=== PATIENT | male | born 1990 | race Caucasian/White ===

== ENCOUNTER 2023-10-12 21:31 | Emergency (ER) | payer OTHER, SELFPAY ==
[2023-10-12 21:35] VITALS: BP 169/109
[2023-10-12 23:09] LABS: Glucose - Point of Care 326 mg/dl (70-99)
--- NOTE | 2023-10-13 00:04 | ED.SKININJ ---
HPI-Injury
General
Chief Complaint: Skin Problem
Source: patient
Exam Limitations: none
Time Seen by Provider: 10/12/23 23:19
Nursing documentation reviewed up to this point in time: agreed with
Travel History
Have you had any contact with someone who has COVID-19?: No
Do you have any symptoms of coronavirus? Fever > 100 degrees, chills, cough, shortness of breath, sore throat, loss of taste or smell, muscle aches, or headache?: No
History of Present Illness-Injury
Is this injury a work related problem?: No
Is pt an associate of [facility]?: No
Initial Injury comments:
Patient to ED with complaint of increasing pain redness and swelling to left distal 3rd finger. Symptoms started 2 days ago. Denes fever/chills. Brought self to ED for eval
Past History
Past History
ED Past Medical History: Hypercholesterolemia, IDDM, NIDDM and Other (Dental caries; TMJ dysfunction)
ED Past Surgical History: Orthopedic (Rotator cuff repair 2018, left great toe amputation)
Social History
Tobacco: Non-smoker
Alcohol: Occasional
Drug: None
Personal:
Living: with family
Employment: Employed
Family History
Family History: CAD (grandfather)
Review of Systems
Review of Systems
Allergies reviewed?: Yes
All Other Systems: ROS reviewed and negative except as documented in HPI and ROS
Constitutional: Reports no symptoms
Musculoskeletal: Reports no symptoms
Skin: Reports other (pain redness swelling to left distal 3rd finger)
Neurological: Reports no symptoms
Psychiatric: Reports no symptoms
Skin Exam
Abscess
Left Distal Third Finger:
Description of abscess: fluctuant
Surrounding skin:: inflammed at abscess site
Phy Exam
General Physical Exam
General Presentation: well appearing and no apparent distress
General age: appears stated age
General Skin: warm and dry
General Habitus: normal
General Mental: alert
Musculoskeletal Exam
Musculoskeletal Exam: full ROM and neuro vasc intact
Skin Exam
Skin Exam: normal color, warm/dry and no rash
Psychiatric Exam
Psychiatric Exam: normal mood/affect
Course
Orders/Labs/Results
Orders:
Orders
10/13/23 00:03
Sulfamethox./Trimethoprim Ds [Bactrim Ds 800 mg/160 mg] 1 tablet PO NOW STA
10/13/23 00:07
Wound Culture [Wound/Abscess/Other Culture] Urgent
VASU Source: Finger
Specimen Description: Left
Abnormal Lab Results
10/12/23
23:07
POC Glucose 326 H mg/dl
(70-99)
10/12/23 21:39
10/12/23 21:39
Vital Signs
Initial and Last Documented VS:
Initial Vital Signs
Temp Resp BP Pulse Ox
97.9 F 17 169/109 99
10/12/23 21:35 10/12/23 21:35 10/12/23 21:35 10/12/23 21:35
Last Documented Vital Signs
Temp Resp BP Pulse Ox
97.9 F 17 169/109 99
10/12/23 21:35 10/12/23 21:35 10/12/23 21:35 10/12/23 21:35
Procedures
Incision/Drainage/Joint Aspiration
Left Distal Third Finger:
Anethesia: 1% Lidocaine
Preparation: cleaned with Betadine
Type of procedure: incise and drain
Nature of site: abscess
Description of abscess: less than 3cm
How much fluid was obtained?: large amount
Fluid description: purulent
Treatment: left open for drainage and antibiotics started
*Critical Care Note
Total Time (30-74mins, 75-104mins- exclusive of procedures): Not Applicable
ED Attending Note
-
Portions of this chart may have been created with voice recognition software.� Occasional wrong word or��sound alike� substitutions may have occurred due to the inherent limitations of voice recognition software.
Discharge Plan
Departure
Patient Disposition: Home (Routine Discharge)
Date of Disposition: 10/13/23
Time of Disposition: 00:04
Patient with high blood pressure during this ER visit?: No
Condition: Good
Covid-19: Not Applicable
Discharge Problem:
Paronychia
Instructions: Wound Care (DC), Paronychia (DC)
Prescriptions:
New
sulfamethoxazole-trimethoprim [Bactrim DS] 800-160 mg tablet
1 tab PO BID Qty: 14 0RF
No Action
atorvastatin 20 mg Tablet
20 mg PO DAILY
Levemir FlexPen 100 unit/mL (3 mL) Insulin Pen
30 unit SC HS
Lyumjev KwikPen U-100 Insulin 100 unit/mL Insulin Pen
24 unit SC TID
Rx Instructions:
Before meals
folic acid 5 mg Capsule
5 mg PO DAILY
amoxicillin-pot clavulanate 875-125 mg tablet
1 tab PO BID Qty: 14 0RF
Referrals:
Laney Woodall DO [Family Provider] - Follow up in 2-3 days
Activity Restrictions/Additional Instructions:
Return to the emergency department immediately for fever/chill, increasing pain/redness/swelling to finger or for any further concerns.
Interventions
Interventions:
*Risk Screen - Suicide Last Done: 10/12/23 21:35
*General Assessment Last Done: 10/12/23 21:35
*Neglect/Abuse Screening Last Done: 10/12/23 23:04
*ED COVID-19 Vaccine History Last Done: 10/12/23 21:35
ED-Skin Assessment Last Done: 10/12/23 23:09
[2023-10-13] MEDS: BACTRIM DS 800 MG/160 MG 1 TABLET PO (00:32)
== END 2023-10-13 00:43 | disposition home or self-care (01) ==
LOC: EMR 21:31
PROVIDERS: EMERGENCY PHYSICIAN Emergency Medicine; FAMILY PHYSICIAN Student in an Organized Health Care Education/Training Program
DX: L03.012 Cellulitis of left finger (principal)
CPT/HCPCS: 99283; 10060; 82962; 87070; 87205

== ENCOUNTER 2023-12-20 19:54 | Emergency (ER) | payer SELFPAY ==
[2023-12-20 20:04] VITALS: BP 178/123; BMI 32.1
[2023-12-20 20:30] LABS: % Basophils 0.7 % (0-2); % Eosinophils 3.3 % (0-6); % Immature Granulocytes 0.4 % (0-0.5); % Lymphocytes 32.2 % (20.5-51.1); % Monocytes 6.4 % (1.7-9.3); Absolute Basophils 0.1 10^3/uL (0-0.2); Absolute Eosinophils 0.3 10^3/uL (0-0.7); Absolute Lymphocytes 2.8 10^3/uL (1.2-3.4); Absolute Monocytes 0.6 10^3/uL (0.1-0.6); Absolute Neutrophils 4.9 10^3/uL (1.4-6.5); Hemoglobin 16.3 g/dL (13.0-18.0); Mean Corp Hgb Conc. 36.2 g/dL (33.0-37.0); Mean Corpuscular Hgb 29.8 pg (27.0-31.0); Mean Corpuscular Volume 82.3 fL (80.0-94.0); Mean Platelet Volume 9.7 fL (7.4-10.4); Nucleated Red Blood Cells % 0 % (-); Platelet Count 299 10^3/uL (130-400); Red Blood Cell Count 5.47 10^6/uL (4.70-6.10); Red Cell Dist. Width 11.2 % (11.5-14.5); White Blood Cell Count 8.5 10^3/uL (4.8-10.8)
[2023-12-20 20:30] LABS: Urine Albumin Negative (Neg - Trace); Urine Bilirubin Negative (Negative); Urine Character Clear (Clear); Urine Color Yellow; Urine Glucose 3+ (Negative); Urine Ketone Trace (Negative); Urine Leukocyte Negative (Negative); Urine Nitrite Negative (Negative); Urine Occult Blood Negative (Negative); Urine Urobilinogen Negative (Neg - 1+); Urine pH 6.5 (5.0-9.0)
[2023-12-20 20:43] LABS: Lactic Acid 3.3 mmol/L (0.7-2.0)
[2023-12-20 20:51] LABS: Blood Urea Nitrogen 13 mg/dl (9-20); Calcium 9.6 mg/dl (8.4-10.2); Estimated Creatinine Clearance > 125 ml/min; Glucose 499 mg/dl (70-99); Lipase 213 U/L (23-300); eGFR > 60.00
[2023-12-20 21:00] LABS: Carbon Dioxide 26 mmol/L (22-30); Chloride 91 mmol/L (98-107); Sodium 130 mmol/L (135-145)
[2023-12-20 21:13] VITALS: BP 156/134
[2023-12-20] MEDS: NSS 1000 IV ×2 (21:19→23:48)
[2023-12-20 21:22] LABS: Venous Blood Gas B.E. 3.6 mmol/L (-4 to +4); Venous Blood Gas HCO3 28.5 mmol/L (22-27); Venous Blood Gas O2 Sat % 90.4 %; Venous Blood Gas pCO2 43 mmHg (35-48); Venous Blood Gas pH 7.43 (7.32-7.43); Venous Blood Gas pO2 56 mmHg (30-50)
[2023-12-20 21:43] LABS: B-Hydroxybutyrate 0.22 mmol/L (0.02-0.27)
[2023-12-20 22:00] VITALS: BP 133/84
[2023-12-20 22:06] LABS: Potassium 3.9 mmol/L (3.5-5.1)
[2023-12-20] MEDS: NOVOLOG vial 10 UNITS SC (22:25)
[2023-12-20 23:00] VITALS: BP 134/92
--- NOTE | 2023-12-20 23:04 | ED.GENMED ---
History of Present Illness
General
Chief Complaint: Abnormal Lab Value
Source: patient
Exam Limitations: none
Time Seen by Provider: 12/20/23 20:50
Nursing documentation reviewed up to this point in time: agreed with
Travel History
Have you had any contact with someone who has COVID-19?: No
Do you have any symptoms of coronavirus? Fever > 100 degrees, chills, cough, shortness of breath, sore throat, loss of taste or smell, muscle aches, or headache?: No
History of Present Illness
History of Present Illness:
33-year-old male with a past medical history of insulin-dependent diabetes who presents to the emergency department for evaluation of hyperglycemia, polyuria and polydipsia. Patient reports that over the past 24 hours his sugars have been very high
he says between 400 and 500. 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
says he has been working a lot recently. He says that he noticed today he was having polyuria and polydipsia and he had some slight blurring of his vision and he decided to come in for assessment. He denies any nausea or vomiting. Denies any
abdominal pain. He denies any recent illness�has not had any fever or chills, chest pain, cough, URI symptoms. Again, he says he has been compliant with his insulin but he does note that he recently switched from treatment with Lantus nightly to
taking 3 times daily 70/30 insulin due to issues with his insurance (switch occured in September). He does note that he has had occasional spikes since he made the switch but today slightly higher than his usual spikes.
Past History
Past History
ED Past Medical History: Hypercholesterolemia, IDDM, NIDDM and Other (Dental caries; TMJ dysfunction)
ED Past Surgical History: Orthopedic (Rotator cuff repair 2018, left great toe amputation)
Social History
Tobacco: Non-smoker
Alcohol: Occasional
Drug: None
Personal:
Living: with family
Employment: Employed
Family History
Family History: CAD (grandfather)
Review of Systems
Review of Systems
All Other Systems: ROS reviewed and negative except as documented in HPI and ROS
Constitutional: Denies fever or chills
Respiratory: Denies cough or trouble breathing
Cardiac: Denies chest pain or palpitations
ABD/GI: Denies abdominal pain, nausea or vomiting
: Denies flank pain
Musculoskeletal: Denies neck pain or back pain
Neurological: Denies headache, weakness or numbness
Endocrine: Reports polyuria and polydipsia
Phy Exam
Physical Exam
Physical Exam:
General: Awake, alert, oriented x3; no acute distress
Head: Normocephalic, atraumatic
Eyes: Conjunctiva normal, EOMI
Throat: Airway intact, handling secretions
Neck: Trachea midline, supple without meningismus
Lungs: Clear to auscultation bilaterally, no wheezing, rales, rhonchi
Heart: Regular rate and rhythm, no murmurs, gallops, or rubs
Abd: Soft, non distended, nontender
Neuro: Cranial nerves grossly intact, speech fluid
Skin: no rash
Extremities: No edema in extremities, equal pulses in all extremities
Scores
Heart Failure Risk
Heart Failure Risk Score: Not Applicable
Heart Score for Chest Pain Patients
STEMI patient?: Not applicable
Withdrawal Assessment of Alcohol
Withdrawal Assessment Completed?: Not applicable
Course
Orders/Labs/Results
Orders:
Orders
12/20/23 20:18
Urinalysis Reflex To Culture Urgent
Date Specimen was Collected: 12/20/23
Time Specimen was Collected: 20:15
Comment: DKA
12/20/23 20:19
Lactic Acid Urgent
12/20/23 20:21
Basic Metabolic Panel Urgent
Complete Blood Count/With Diff Urgent
Lipase Urgent
12/20/23 20:51
0.9% Sodium Chloride 1000 ml [Nss] 1,000 ml IV BOLUS
12/20/23 21:11
Insulin Aspart [NOVOLOG vial] 10 units SC NOW STA
12/20/23 21:16
Acetone [B-Hydroxybutyrate] Urgent
Potassium Urgent
Comment: ADD ON
Venous Blood Gas Urgent
%Oxygen/Room Air: 100
12/20/23 21:45
Potassium Urgent
12/20/23 23:34
0.9% Sodium Chloride 1000 ml [Nss] 1,000 ml IV BOLUS
Abnormal Lab Results
12/20/23 12/20/23 12/20/23
20:18 20:19 20:21
RDW 11.2 L %
(11.5-14.5)
VBG pO2
VBG HCO3
Sodium 130 L mmol/L
(135-145)
Chloride 91 L mmol/L
(98-107)
Creatinine 0.6 L mg/dL
(0.7-1.3)
Glucose 499 H* mg/dl
(70-99)
Lactic Acid 3.3 H mmol/L
(0.7-2.0)
Urine Ketones Trace A
(Negative)
Urine Glucose 3+ A
(Negative)
POC Glucose
12/20/23 12/20/23 12/21/23
21:16 23:30 00:18
RDW
VBG pO2 56 H mmHg
(30-50)
VBG HCO3 28.5 H mmol/L
(22-27)
Sodium
Chloride
Creatinine
Glucose
Lactic Acid
Urine Ketones
Urine Glucose
POC Glucose 342 H mg/dl 276 H mg/dl
(70-99) (70-99)
12/20/23 20:21
12/20/23 21:45
Vital Signs
Initial and Last Documented VS:
Initial Vital Signs
Temp Pulse Resp BP Pulse Ox
36.9 C 98 22 178/123 100
12/20/23 20:04 12/20/23 20:04 12/20/23 20:04 12/20/23 20:04 12/20/23 20:04
Last Documented Vital Signs
Temp Pulse Resp BP Pulse Ox
36.9 C 98 22 134/92 98
12/20/23 20:04 12/20/23 20:04 12/20/23 20:04 12/20/23 23:00 12/20/23 23:30
MDM/Problems Addressed
Differential Diagnosis Includes:
Hyperglycemia, DKA
MDM/Problems Addressed:
33-year-old male presents for evaluation of hyperglycemia and polyuria/polydipsia over the past 24 hours�he thinks it is likely due to poor dietary choices in the setting of increased work hours recently. Hypertensive on arrival normalized by my
assessment, rest of vitals normal. Exam as above. Place an IV check labs including CBC and CMP, VBG, acetone level. Will check urinalysis. Will treat with fluids to start. Reassess after the above.
Labs reviewed: CBC unremarkable, CMP shows hyperglycemia to 499 with no acidosis (bicarb 26), no anion gap. Potassium 4. VBG shows normal pH. No significant elevation of acetone levels. Will continue with IV fluids. Will dose with 10 units of
subcutaneous insulin. Will monitor blood sugars here. Reassess after the above. Patient appears well, drinking water and resting comfortably in bed on reassessment.
Blood glucose downtrending, sugar now down to 276. Patient awake and alert he is feeling better. I think he is stable for discharge. Advised to drink plenty of fluids, spoke about careful attention to his diet. Advised to watch his sugars
closely. Follow-up with his primary doctor as an outpatient. Spoke about return precautions all questions answered.
Chronic conditions affecting care:
Insulin-dependent diabetes
Acute Exacerbation and/or Progression of Chronic Illness:
Acutely hyperglycemic treated as above
Acute Exacerbation and/or Progression of Chronic Illness: DM
*Pulse Oximetry
Patient hypoxic: no
*Critical Care Note
Total Time (30-74mins, 75-104mins- exclusive of procedures): Not Applicable
Data Reviewed
Review of Other/Old Records Reveals: Labs and Records
Source: patient and records
ED Attending Note
-
Portions of this chart may have been created with voice recognition software.� Occasional wrong word or��sound alike� substitutions may have occurred due to the inherent limitations of voice recognition software.
Discharge Plan
Departure
Patient Disposition: Home (Routine Discharge)
Date of Disposition: 12/21/23
Time of Disposition: 00:23
Patient with high blood pressure during this ER visit?: Yes
Discharge Problem:
Hyperglycemia
Instructions: High Blood Sugar, Adult ED
Prescriptions:
No Action
bupropion HCl 150 mg Tablet Sustained-Release 12 Hr
150 mg PO DAILY
folic acid 1 mg Tablet
5 mg PO DAILY
Fish Oil 500 mg Capsule
1,000 mg PO DAILY
Referrals:
Laney Woodall DO [Family Provider] - Follow up in 2-3 days
Activity Restrictions/Additional Instructions:
Thank you for visiting the Emergency Department at [facility].
1. Please schedule a follow up appointment as directed. Call first thing tomorrow morning to make an appointment.
2. If indicated, please take your medications as instructed and indicated on discharge paperwork.
3. If any of your symptoms do not improve, or persist, or become more severe within 6-12 hours, please return to the emergency department for further care.
4. Please return to the emergency department if you develop a headache, neck pain/stiffness, fever greater than 100.4F, chest pain, shortness of breath, persistent nausea, vomiting, slurred speech, difficulty walking, numbness/tingling, weakness,
signs of infection or any other symptoms that are worrisome to you.
Please call [phone] if you have any questions.
Interventions
Interventions:
*Risk Screen - Suicide Last Done: 12/20/23 20:04
*Neglect/Abuse Screening Last Done: 12/20/23 20:04
ED- Fall Risk Assessment Last Done: 12/20/23 20:04
*ED COVID-19 Vaccine History Last Done: 12/20/23 20:04
Discharge Date and Time
Print Language: [email or web address]
[2023-12-20 23:32] LABS: Glucose - Point of Care 342 mg/dl (70-99)
[2023-12-21 00:20] LABS: Glucose - Point of Care 276 mg/dl (70-99)
== END 2023-12-21 00:51 | disposition home or self-care (01) ==
LOC: EMR 19:54
PROVIDERS: Emergency Medicine; EMERGENCY PHYSICIAN Emergency Medicine; FAMILY PHYSICIAN Student in an Organized Health Care Education/Training Program
DX: E11.65 Type 2 diabetes mellitus with hyperglycemia (principal); R03.0 Elevated blood-pressure reading, without diagnosis of hypertension
CPT/HCPCS: 99284; 96360; 96361; 96372; 80048; 81003; 82010; 82805; 82962; 83605; 83690; 84132; 85025